=== PATIENT | female | born 1985 | race Two or more races ===

== ENCOUNTER 2018-02-06 21:36 | Emergency (ER) | payer MEDICARE ==
[~2018-02-06] VITALS: Ht 149.9 cm; Wt 61.2 kg
[2018-02-06 22:00] VITALS: BP 89/51
[2018-02-06 22:09] LABS: APPEARANCE,URINE CLEAR; BILIRUBIN, URINE NEGATIVE (NEGATIVE); COLOR,URINE YELLOW; GLUCOSE, URINE (UA) 2+ (NEGATIVE); KETONES,URINE NEGATIVE (NEGATIVE); LEUKOCYTE ESTERASE ,URINE 1+ (NEGATIVE); NITRITE,URINE NEGATIVE (NEGATIVE); PH,URINE 9 (4.5-8.0); PROTEIN,URINE 3+ (NEGATIVE); UROBILINOGEN,URINE NORMAL MG/DL (0.0-1.0)
[2018-02-06] MEDS ORDERED: AMOXICILLIN500 MG ORAL (22:25)
[2018-02-06 22:53] VITALS: BP 99/67
--- NOTE | 2018-02-06 23:46 | Emergency Room Report ---
History of Present Illness General Chief Complaint: Earache Source: Patient Present Illness HPI 32-year-old female presents ED for evaluation. Complaining of left ear pain 1 day. Throbbing, 9 out of 10, nonradiating. Denies fevers or chills. History of end-stage renal disease on dialysis. Had dialysis yesterday. Denies sore throat or cough. Denies sick contacts or recent travel. No other aggravating relieving factors. Denies any other associated symptoms Allergies: Coded Allergies: VANCOMYCIN (Verified Allergy, Unknown, 02/06/18) Patient History Past Medical History: renal disease, dialysis Past Surgical History: none Pertinent Family History: none Social History: Denies: smoking, alcohol use, drug use Last Menstrual Period: 01/07/2018 Now: No Immunizations: UTD Reviewed Nursing Documentation: PMH: Agreed; PSxH: Agreed Nursing Documentation-PMH Past Medical History: No History, Except For Hx Dialysis: Yes - MWF Review of Systems All Other Systems: negative except mentioned in HPI Physical Exam Vital Signs Date Time Temp Pulse Resp B/P (MAP) Pulse Ox O2 Delivery O2 Flow Rate FiO2 02/06/18 21:39 98.9 105 16 99 Room Air 99.0 02/06/18 22:00 89/51 Sp02 EP Interpretation: reviewed, normal General Appearance: no apparent distress, alert, GCS 15, non-toxic Head: normocephalic Eyes: bilateral eye normal inspection, bilateral eye PERRL ENT: normal pharynx, uvula midline, other - fluid behind L TM. erythematus Neck: normal inspection Respiratory: chest non-tender, lungs clear, normal breath sounds, speaking full sentences Cardiovascular #1: normal inspection Gastrointestinal: normal inspection Rectal: deferred Genitourinary: no CVA tenderness Musculoskeletal: normal inspection Neurologic: alert, oriented x3, responsive, motor strength/tone normal, sensory intact, speech normal Psychiatric: normal inspection Skin: normal inspection Lymphatic: normal inspection Medical Decision Making Diagnostic Impression: Primary Impression: ESRD on dialysis Additional Impressions: Otitis media Qualified Codes: H66.90 - Otitis media, unspecified, unspecified ear Earache, left ER Course Hospital Course 32-year-old F presents to ED with pain L ear. no fever. Differential diagnoses include: TM perforation, otitis externa, otitis media Clinical course Patient placed on stretcher. After initial history, physical exam reveals a female in no acute distress. L TM fluid noted. poor light reflex. Remainder of physical exam unremarkable. clinical findings consistent with otitis media UA negative Patient has end-stage renal disease. Dosing for amoxicillin is once daily. She does not have a PMD here we will provide referrals. Diagnosis - otitis media, ERSD on dialysis Stable and discharged to home with Rx amoxicillin. Followup with PMD. Return to ED if symptoms recur or worsen Labs Test 02/06/18 21:46 Urine Color Yellow Urine Appearance Clear Urine pH 9 (4.5-8.0) Urine Specific [place] 1.010 (1.005-1.035) Urine Protein 3+ (NEGATIVE) Urine Glucose (UA) 2+ (NEGATIVE) Urine Ketones Negative (NEGATIVE) Urine Blood 2+ (NEGATIVE) Urine Nitrite Negative (NEGATIVE) Urine Bilirubin Negative (NEGATIVE) Urine Urobilinogen Normal MG/DL (0.0-1.0) Urine Leukocyte Esterase 1+ (NEGATIVE) Urine RBC 5-10 /HPF (0 - 2) Urine WBC 2-4 /HPF (0 - 2) Urine Squamous Epithelial Cells Few /LPF (NONE/OCC) Urine Bacteria Few /HPF (NONE) Urine HCG, Qualitative Negative (NEGATIVE) Last Vital Signs Date Time Temp Pulse Resp B/P (MAP) Pulse Ox O2 Delivery O2 Flow Rate FiO2 02/06/18 22:53 98.2 78 16 99/67 96 Room Air 98.2 Status: improved Disposition: HOME, SELF-CARE Condition: Stable Scripts Amoxicillin* (AMOXIL*) 500 Mg Capsule 500 MG ORAL DAILY for 10 Days, #10 CAP Prov: Harley Mariee MD 02/06/18 Referrals: NOT CHOSEN IPA/,REFERRING (PCP) [facility] Patient Instructions: Otitis Media, Adult, [id number], End-Stage Kidney Disease Harley Mariee MD Feb 06, 2018 23:46
== END 2018-02-06 22:45 | disposition home or self-care (01) ==
LOC: EMR 21:56
DX: H66.90 Otitis media, unspecified, unspecified ear (principal); N18.6 End stage renal disease; Z99.2 Dependence on renal dialysis; Z88.1 Allergy status to other antibiotic agents
CPT/HCPCS: 81003; 81025; 99283

== ENCOUNTER 2018-02-10 01:59 | Emergency (ER) | payer MEDICARE ==
[~2018-02-10] VITALS: Ht 160 cm; Wt 56.2 kg
[~2018-02-10 01:59] MED LIST: AMOXICILLIN500 MG ORAL
[2018-02-10 02:22] VITALS: BP 110/70
[2018-02-10] MEDS ORDERED: HYDROCODON-ACE1 EA15 ORAL (02:35)
[2018-02-10] MEDS ORDERED: CIPRODEX OTIC7.5 M1 LEFT EAR (02:35)
[2018-02-10] MEDS ORDERED: CLINDAMYCIN HC300 MG ORAL (02:35)
--- NOTE | 2018-02-10 02:36 | Emergency Room Report ---
History of Present Illness General Chief Complaint: Earache Source: Patient Present Illness HPI Is a 32-year-old female with history of renal failure hemodialysis. She presents with tumor left ear pain. She was here 5 days ago for the same thing. Was placed on amoxicillin. Not improving. Increasing pain. No nausea no vomiting. No fever chills. Worse with movement and palpation. Denies any other complaint. Allergies: Coded Allergies: VANCOMYCIN (Verified Allergy, Unknown, 02/06/18) Patient History Past Medical History: see triage record, old chart reviewed Past Surgical History: other Pertinent Family History: none Social History: Denies: smoking Now: No Immunizations: other Reviewed Nursing Documentation: PMH: Agreed; PSxH: Agreed Nursing Documentation-PMH Hx Dialysis: Yes - MWF Review of Systems Eye: Denies: eye pain, blurred vision ENT: Reports: ear pain; Denies: nose congestion, throat swelling Respiratory: Denies: cough, shortness of breath Cardiovascular: Denies: chest pain, palpitations Gastrointestinal: Denies: abdominal pain, diarrhea, nausea, vomiting Musculoskeletal: Denies: back pain, joint pain Skin: Denies: rash Neurological: Denies: headache, numbness Endocrine: Denies: increased thirst, increased urine Hematologic/Lymphatic: Denies: easy bruising All Other Systems: negative except mentioned in HPI Physical Exam Vital Signs Date Time Temp Pulse Resp B/P (MAP) Pulse Ox O2 Delivery O2 Flow Rate FiO2 02/10/18 02:06 98.3 84 16 111/73 97 Room Air 98.2 vitals normal Sp02 EP Interpretation: reviewed, normal General Appearance: well appearing, no apparent distress, alert Head: normocephalic, atraumatic Eyes: bilateral eye PERRL, bilateral eye EOMI ENT: hearing grossly normal, normal pharynx, other - Left ear: There is some edema to the canal. Worse with movement. TM is cloudy. No perforation. Neck: full range of motion, supple, no meningismus Respiratory: chest non-tender, lungs clear, normal breath sounds Cardiovascular #1: regular rate, rhythm, no murmur Gastrointestinal: normal bowel sounds, non tender, no mass, no organomegaly, no bruit, non-distended Musculoskeletal: back normal, gait/station normal, normal range of motion Psychiatric: mood/affect normal Skin: warm/dry Medical Decision Making Diagnostic Impression: Primary Impression: Otitis media Qualified Codes: H66.002 - Acute suppurative otitis media without spontaneous rupture of ear drum, left ear Additional Impression: Otitis externa Qualified Codes: H60.502 - Unspecified acute noninfective otitis externa, left ear ER Course Patient with both otitis externa and otitis media. We'll put on antibiotic drops and switch antibiotic class. No evidence of perforation. No evidence of mastoiditis. We'll discharge home. Last Vital Signs Date Time Temp Pulse Resp B/P (MAP) Pulse Ox O2 Delivery O2 Flow Rate FiO2 02/10/18 02:22 98.2 84 16 110/70 97 Room Air 98.2 Status: improved Disposition: HOME, SELF-CARE Condition: Stable Scripts Ciprofloxacin Hcl/Dexameth (CIPRODEX OTIC SUSPENSION) 7.5 Ml Drops.susp 4 DROP LEFT EAR TWICE A DAY, #10 ML Prov: Damon Jacobsen MD 02/10/18 Hydrocodone/Acetaminophen 5-325* (HYDROCODONE/ACETAMINOPHEN 5-325*) 1 Each Tablet 1 TAB ORAL Q6H PRN for For Pain, #15 TAB 0 Refills Prov: Damon Jacobsen MD 02/10/18 Clindamycin Hcl (CLINDAMYCIN HCL) 300 Mg Capsule 300 MG ORAL THREE TIMES A DAY, #21 CAP Prov: Damon Jacobsen MD 02/10/18 Patient Instructions: Otitis Media, Adult, [id number] Additional Instructions: Follow-up with your doctor in 7 days. Return if worse. If not better, you may need a referral to see ENT doctor. Damon Jacobsen MD Feb 10, 2018 02:36
[2018-02-10 02:51] VITALS: BP 110/73
== END 2018-02-10 02:55 | disposition home or self-care (01) ==
LOC: EMR 02:39
DX: H66.92 Otitis media, unspecified, left ear (principal); H60.92 Unspecified otitis externa, left ear; Z88.1 Allergy status to other antibiotic agents
CPT/HCPCS: 99282

== ENCOUNTER 2018-03-12 17:00 | Emergency (ER) | payer MEDICARE, OTHER ==
[~2018-03-12] VITALS: Ht 149.9 cm; Wt 60.3 kg
[~2018-03-12 17:00] MED LIST changes: +CIPRODEX OTIC7.5 M1 LEFT EAR; +CLINDAMYCIN HC300 MG ORAL; +HYDROCODON-ACE1 EA15 ORAL
[2018-03-12] MEDS ORDERED: RENVELA0.8 GM ORAL (17:15)
--- NOTE | 2018-03-12 17:34 | Emergency Room Report ---
History of Present Illness General Chief Complaint: Upper Extremity Injury Source: Patient Present Illness HPI 32-year-old female patient presents ER complaining of left wrist pain for the past few hours. Patient reports that she was swinging a bat piata when she began x-rays of her spine. Reports mild decreased range of motion secondary to pain. Denies numbness or tingling. Reports right-hand dominant. Reports history of end-stage renal disease, states that her dialysis is done on MWF and her fistula is on her right upper extremity. Denies fever, chest pain, shortness of breath. Allergies: Coded Allergies: VANCOMYCIN (Verified Allergy, Unknown, 02/06/18) Patient History Past Medical History: see triage record Now: No Reviewed Nursing Documentation: PMH: Agreed; PSxH: Agreed Nursing Documentation-PMH Past Medical History: No History, Except For Hx Dialysis: Yes - MWF Review of Systems All Other Systems: negative except mentioned in HPI Physical Exam Vital Signs Date Time Temp Pulse Resp B/P (MAP) Pulse Ox O2 Delivery O2 Flow Rate FiO2 03/12/18 17:09 98.4 94 18 102/73 97 Room Air Sp02 EP Interpretation: reviewed, normal General Appearance: well appearing, no apparent distress, alert, GCS 15, non- toxic Head: normocephalic, atraumatic Eyes: bilateral eye normal inspection, bilateral eye PERRL ENT: hearing grossly normal, normal pharynx, no angioedema, normal voice, uvula midline, moist mucus membranes Neck: full range of motion Respiratory: lungs clear, normal breath sounds, no rhonchi, no respiratory distress, no accessory muscle use, no wheezing, speaking full sentences Cardiovascular #1: regular rate, rhythm, no edema Cardiovascular #2: 2+ radial (R), 2+ radial (L) Musculoskeletal: back normal, digits/nails normal, gait/station normal, normal range of motion - supination and pronation, non-tender, decreased range of motion - secondary to pain with flexion and extension, other - NVI, no snuffbox tenderness, tender - lateral distal left wrist on lateral aspect Neurologic: alert, oriented x3, responsive, motor strength/tone normal, sensory intact Psychiatric: mood/affect normal Skin: no rash Medical Decision Making PA Attestation Dr. Mariee is my supervising Physician whom patient management has been discussed with. Diagnostic Impression: Primary Impression: Wrist sprain ER Course Pt. presents to the ED c/o left wrist pain. Ddx considered but are not limited to fracture, sprain, strain, contusion, dislocation. No erythema, no warmth to touch, no fever, nontoxic appearing, low suspicion for septic joint. Soft compartments, no pulselessness, no pallor, no paresthesias, low suspicion for compartment syndrome at this time. Vital signs: are WNL, pt. is afebrile Ordered X-ray and pain medication. ER COURSE Provided with pain medication. An X-ray of the left wrist negative for acute fracture per the preliminary reading. Likely sprain causing pain symptoms. Splint was applied to the left wrist and was checked afterwards by me showing good alignment and support with distal neurovascular functioning intact. Patient instructed on RICE method: rest, ice, compression, elevation. Patient instructed on rest, ice and heat. Patient instructed to be WBAT Contact information for orthopedic urgent care provided, follow-up with urgent care if unable to followup with primary care provider and get referral to recreation specialist. Followup with primary care provider. Discuss referral to ortho/pain management/ PT as needed. Discuss further imaging with MRI/CT as needed. DISCHARGE: -Rx provided for Tylenol for pain symptoms. At this time pt. is stable for d/c to home. Patient is resting comfortably, in no acute distress, nontoxic appearing, talking without difficulty. Will provide printed patient care instructions, and any necessary prescriptions. Patient instructed to follow with primary care provider in 3 - 5 days and to request further follow-up as needed. Care plan and follow up instructions have been discussed with the patient prior to discharge. Take medications as directed. Patient questions asked and answered. Patient reports understanding and agreement to treatment plan. ER precautions given, patient instructed to return to ER immediately for any new or worsening of symptoms. - Please note that this Emergency Department Report was dictated using [employer] software, occasionally this can lead to erroneous entry secondary to interpretation by the dictation equipment. Other X-Ray Diagnostic Results Other X-Ray Diagnostic Results : X-Ray ordered: left wrist # of Views/Limited Vs Complete: 3 View Indication: Pain EP Interpretation: Yes PA Xray: Interpretation reviewed, by supervising MD, and agrees with findings. Interpretation: no dislocation, no fractures Impression: No acute disease HOWIE Scribe Text Niranjan Bobbi PA-C Last Vital Signs Date Time Temp Pulse Resp B/P (MAP) Pulse Ox O2 Delivery O2 Flow Rate FiO2 03/12/18 17:09 98.4 94 18 102/73 97 Room Air Status: improved Disposition: HOME, SELF-CARE Condition: Stable Scripts Acetaminophen* (TYLENOL EXTRA STRENGTH*) 500 Mg Tablet 500 MG ORAL Q8H PRN for Prn Headache/Temp > 101, #30 TAB 0 Refills Prov: Ed Martines 03/12/18 Patient Instructions: Wrist Sprain Additional Instructions: Patient instructed to follow up with primary care provider and discuss further referral to orthopedics/physical therapy/pain management as needed. If unable to followup with PCP, followup with orthopedic urgent care in 5-7 days , call to schedule appointment. Patient instructed on RICE method: rest, ice, compression, elevation. Patient instructed to WBAT. Take medications as directed. Patient questions asked and answered. ER precautions given, patient instructed to return to ER immediately for any new or worsening of symptoms. [facility] [address] [facility] [address] [facility], [address] [email or web address] Ed Martines Mar 12, 2018 17:34
[2018-03-12 17:49] VITALS: BP 114/79
[2018-03-12] MEDS ORDERED: TYLENOL EXTRA500 MG ORAL (17:52)
[2018-03-12 18:07] VITALS: BP 114/79
--- NOTE | 2018-03-13 10:40 | Diagnostic Imaging Report ---
Clinical Indication:Wrist pain Technique: 3 views of the left wrist Comparison: None Findings: No acute fractures. No dislocations. The joint spaces are preserved Impression: Negative
== END 2018-03-12 18:07 | disposition home or self-care (01) ==
LOC: EMR 17:11
DX: S63.502A Unspecified sprain of left wrist, initial encounter (principal); X50.9XXA Other and unspecified overexertion or strenuous movements or postures, initial encounter; Y92.9 Unspecified place or not applicable; N18.6 End stage renal disease; Z99.2 Dependence on renal dialysis
CPT/HCPCS: 29125; 99283

== ENCOUNTER 2018-07-24 21:29 | Emergency (ER) | payer MEDICARE, OTHER ==
[~2018-07-24] VITALS: Ht 160 cm; Wt 68.0 kg
[~2018-07-24 21:29] MED LIST changes: +RENVELA0.8 GM ORAL; +TYLENOL EXTRA500 MG ORAL
--- NOTE | 2018-07-24 22:26 | NUR ---
ED Nurse Note: Pt walked in ED, c/o right ankle pain 10/02, due to cauted in stamped today. Pt is A/O X4. VSS , waitng for orders.
--- NOTE | 2018-07-24 22:50 | NUR ---
ED Nurse Note: X-ray done at bed side, Pain meds given as ordered.
[2018-07-24] MEDS ORDERED: IBUPROFEN600 MG ORAL (23:21)
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
[2018-07-24 23:34] VITALS: BP 105/63
--- NOTE | 2018-07-24 23:34 | NUR ---
ER DISCHARGE NOTE: Patient is cleared to be discharged per Dr. Jacobsen. X-ray done to the right foot and no fracture was found at this time. Crutches provided. Pt is A/O x4 on room air with stable vital signs. Pt was given D/C and prescription instructions, Pt was able to verbalize understanding, pt ID band removed. pt is able to ambulate with Crutches and took all belongings.
--- NOTE | 2018-07-25 10:55 | Diagnostic Imaging Report ---
Indication: Trauma, pain, status post fall Technique: 3 views right foot Comparison: none Findings: There is mild hallux valgus. No acute fractures. No dislocations. The joint spaces are preserved. Impression: Negative
--- NOTE | 2018-07-25 10:57 | Diagnostic Imaging Report ---
Indication: Trauma, pain, status post fall Technique: 3 views of the right knee Comparison: None Findings: No suprapatellar effusion. No acute fractures. No dislocations. Joint spaces are preserved Impression: Negative
== END 2018-07-24 23:34 | disposition home or self-care (01) ==
LOC: EMR 22:21
DX: S83.91XA Sprain of unspecified site of right knee, initial encounter (principal); S93.601A Unspecified sprain of right foot, initial encounter; W01.0XXA Fall on same level from slipping, tripping and stumbling without subsequent striking against object, initial encounter; Y93.02 Activity, running; Y92.89 Other specified places as the place of occurrence of the external cause; Z88.1 Allergy status to other antibiotic agents
CPT/HCPCS: 99283

== ENCOUNTER 2018-11-01 20:54 | Emergency (ER) | payer MEDICARE, OTHER ==
[~2018-11-01] VITALS: Ht 149.9 cm; Wt 60.3 kg
[~2018-11-01 20:54] MED LIST changes: +IBUPROFEN600 MG ORAL
--- NOTE | 2018-11-01 21:33 | NUR ---
ED Nurse Note: Pt ambulated to ED from home c/o 8/10 R flank pain x 3 hrs. Pt had dialysis today M/W/F, shunt on upper R arm. Pt is A&Ox4.
[2018-11-01 21:36] VITALS: BP 93/54
[2018-11-01 21:59] LABS: APPEARANCE,URINE CLOUDY; BILIRUBIN, URINE NEGATIVE (NEGATIVE); COLOR,URINE YELLOW; GLUCOSE, URINE (UA) 2+ (NEGATIVE); KETONES,URINE NEGATIVE (NEGATIVE); LEUKOCYTE ESTERASE ,URINE 1+ (NEGATIVE); NITRITE,URINE NEGATIVE (NEGATIVE); PH,URINE 9 (4.5-8.0); PROTEIN,URINE 3+ (NEGATIVE); UROBILINOGEN,URINE NORMAL MG/DL (0.0-1.0)
[2018-11-01 22:11] LABS: BASOPHILS % (AUTO) 1.4 % (0.0-2.0); EOSINOPHILS % (AUTO) 3.9 % (0.0-3.0); HEMATOCRIT 38.7 % (37.0-47.0); HEMOGLOBIN 12.8 G/DL (12.0-16.0); LYMPHOCYTES % (AUTO) 20.7 % (20.0-45.0); MEAN CORPUSCULAR VOLUME 97 FL (80-99); MONOCYTES % (AUTO) 8.1 % (1.0-10.0); NEUTROPHILS % (AUTO) 65.9 % (45.0-75.0); PLATELET COUNT 130 K/UL (150-450); RED BLOOD COUNT 3.98 M/UL (4.20-5.40); RED CELL DISTRIBUTION WIDTH 12.6 % (11.6-14.8); WHITE BLOOD COUNT 8.5 K/UL (4.8-10.8)
[2018-11-01 22:21] LABS: ANION GAP 8 mmol/L (5-15); BLOOD UREA NITROGEN 23 mg/dL (7-18); CARBON DIOXIDE 34 MMOL/L (21-32); CHLORIDE 98 MMOL/L (98-107); CREATININE 6.3 MG/DL (0.55-1.30); SODIUM 140 MMOL/L (136-145)
[2018-11-01] MEDS ORDERED: Cephalexin 500mg cap ORAL ONE (23:00)
[2018-11-01] MEDS ORDERED: CEPHALEXIN500 MG ORAL (23:48)
[2018-11-01 23:50] VITALS: BP 128/80
--- NOTE | 2018-11-01 23:50 | NUR ---
ER DISCHARGE NOTE: Patient is cleared to be discharged per ERMD, pt is aox4, on room air, with stable vital signs. pt was given dc and prescription instructions, pt was able to verbalize understanding, pt id band removed. pt is able to ambulate with steady gait. pt took all belongings.
--- NOTE | 2018-11-02 02:07 | Emergency Room Report ---
History of Present Illness General Chief Complaint: Pain Source: Patient Present Illness HPI Patient presents with complaints of right flank pain ongoing for the past 2 days denies any chest pain or shortness of breath denies any fevers denies any vomiting or diarrhea Patient receives dialysis Tuesday and just had dialysis earlier this morning patient does still make urine Denies any anterior abdominal pain denies any recent travel or trauma Allergies: Coded Allergies: VANCOMYCIN (Verified Allergy, Unknown, 02/06/18) Patient History Past Medical History: see triage record Last Menstrual Period: 09/2018 Reviewed Nursing Documentation: PMH: Agreed; PSxH: Agreed Nursing Documentation-PMH Hx Dialysis: Yes - MWF Review of Systems All Other Systems: negative except mentioned in HPI Physical Exam Vital Signs Date Time Temp Pulse Resp B/P (MAP) Pulse Ox O2 Delivery O2 Flow Rate FiO2 11/01/18 21:27 99.0 84 16 93/54 (67) 98 Room Air Sp02 EP Interpretation: reviewed, normal General Appearance: well appearing, no apparent distress Head: normocephalic, atraumatic Eyes: bilateral eye PERRL, bilateral eye EOMI ENT: hearing grossly normal, normal pharynx, TMs + canals normal, uvula midline Neck: full range of motion, supple, no meningismus, no bony tend Respiratory: lungs clear, normal breath sounds, no rhonchi, no respiratory distress, no retraction, no accessory muscle use Cardiovascular #1: normal peripheral pulses, regular rate, rhythm, no edema, no gallop, no JVD, no murmur Gastrointestinal: normal bowel sounds, non tender, soft, no mass, no organomegaly, non-distended, no guarding, no hernia, no pulsatile mass, no rebound Genitourinary: no CVA tenderness - However points objectively to the right lower and flank region Musculoskeletal: normal inspection Neurologic: oriented x3, responsive, 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, motor strength/ tone normal, sensory intact Psychiatric: mood/affect normal Skin: no rash Lymphatic: normal inspection, no adenopathy Medical Decision Making Diagnostic Impression: Primary Impression: uti Additional Impression: flank pain ER Course With the history exam and presentation, multiple differentials considered, including but not limited to appendicitis, gastritis, cholecystitis, diverticulitis Patient had CT imaging also obtained without contrast given the kidney failure status No obvious acute pathology is seen patient's urine however does show some signs of UTI given the location of discomfort early pyelonephritis is also considered Patient does not appear septic or toxic and will have initial Conservative outpatient trial Labs Test 11/01/18 21:45 11/01/18 22:00 Urine Color Yellow Urine Appearance Cloudy Urine pH 9 (4.5-8.0) Urine Specific [place] 1.015 (1.005-1.035) Urine Protein 3+ (NEGATIVE) Urine Glucose (UA) 2+ (NEGATIVE) Urine Ketones Negative (NEGATIVE) Urine Blood 1+ (NEGATIVE) Urine Nitrite Negative (NEGATIVE) Urine Bilirubin Negative (NEGATIVE) Urine Urobilinogen Normal MG/DL (0.0-1.0) Urine Leukocyte Esterase 1+ (NEGATIVE) Urine RBC 5-10 /HPF (0 - 2) Urine WBC 2-4 /HPF (0 - 2) Urine Squamous Epithelial Cells Few /LPF (NONE/OCC) Urine Amorphous Sediment Few /LPF (NONE) Urine Bacteria Moderate /HPF (NONE) Urine HCG, Qualitative Negative (NEGATIVE) White Blood Count 8.5 K/UL (4.8-10.8) Red Blood Count 3.98 M/UL (4.20-5.40) Hemoglobin 12.8 G/DL (12.0-16.0) Hematocrit 38.7 % (37.0-47.0) Mean Corpuscular Volume 97 FL (80-99) Mean Corpuscular Hemoglobin 32.2 PG (27.0-31.0) Mean Corpuscular Hemoglobin Concent 33.1 G/DL (32.0-36.0) Red Cell Distribution Width 12.6 % (11.6-14.8) Platelet Count 130 K/UL (150-450) Mean Platelet Volume 10.5 FL (6.5-10.1) Neutrophils (%) (Auto) 65.9 % (45.0-75.0) Lymphocytes (%) (Auto) 20.7 % (20.0-45.0) Monocytes (%) (Auto) 8.1 % (1.0-10.0) Eosinophils (%) (Auto) 3.9 % (0.0-3.0) Basophils (%) (Auto) 1.4 % (0.0-2.0) Sodium Level 140 MMOL/L (136-145) Potassium Level 4.0 MMOL/L (3.5-5.1) Chloride Level 98 MMOL/L (98-107) Carbon Dioxide Level 34 MMOL/L (21-32) Anion Gap 8 mmol/L (5-15) Blood Urea Nitrogen 23 mg/dL (7-18) Creatinine 6.3 MG/DL (0.55-1.30) Estimat Glomerular Filtration Rate 7.6 mL/min (>60) Glucose Level 92 MG/DL (74-106) Calcium Level 10.0 MG/DL (8.5-10.1) CT/MRI/US Diagnostic Results CT/MRI/US Diagnostic Results : Impression CT abdomen pelvis: Refer to report for full specifics no acute disease Last Vital Signs Date Time Temp Pulse Resp B/P (MAP) Pulse Ox O2 Delivery O2 Flow Rate FiO2 11/01/18 23:50 98.2 78 12 128/80 98 Room Air Status: improved Disposition: HOME, SELF-CARE Condition: Improved Scripts Cephalexin* (KEFLEX*) 500 Mg Capsule 500 MG ORAL EVERY 6 HOURS for 7 Days, CAP Prov: Lisandra Fallon DO 11/01/18 Referrals: NOT CHOSEN IPA/MD,REFERRING (PCP) Primary physician Patient Instructions: Flank Pain, [id number], Urinary Tract Infection, Easy- to-Read Additional Instructions: Patient is provided with the discharge instructions notified to follow up with primary doctor in the next 2-3 days otherwise return to the er with any worsening symptoms. Please note that this report is being documented using [employer] technology. This can lead to erroneous entry secondary to incorrect interpretation by the dictating instrument. Lisandra Fallon DO Nov 02, 2018 02:07
--- NOTE | 2018-11-02 10:41 | Diagnostic Imaging Report ---
Indication: Abdominal pain Technique: Continuous helical transaxial imaging of the abdomen and pelvis was obtained from the lung bases to the pubic symphysis. No intravenous contrast was administered. Coronal 2-D reformats were also obtained. Automatic Exposure Control was utilized. Total Dose length Product (DLP): 756.[address] Dose Index Volume (CTDIvol): 14.36 mGy Comparison: none Findings: Mild linear densities at the lung bases likely atelectasis. The kidneys are atrophic. Solid organs are not evaluated well on noncontrast imaging. There is a focus of the low attenuation near the falciform ligament which is likely fat. There is no free fluid. Bowel gas pattern is nonobstructive. Appendix is normal. Uterus noted. Bladder is nondistended. IMPRESSION: No acute findings identified Other findings as above. [facility] has communicated the preliminary results to the Emergency Department. Their findings are largely concordant with this report. The CT scanner at [facility] is accredited by the [employer] and the scans are performed using dose optimization techniques as appropriate to a performed exam including Automatic Exposure control.
== END 2018-11-01 23:50 | disposition home or self-care (01) ==
LOC: EMR 21:30
DX: N39.0 Urinary tract infection, site not specified (principal); R10.9 Unspecified abdominal pain; N18.6 End stage renal disease; Z99.2 Dependence on renal dialysis
CPT/HCPCS: 36415; 74176; 80048; 81003; 81025; 85025; 87086; 99284

== ENCOUNTER 2019-03-26 19:22 | Emergency (ER) | payer MEDICARE, OTHER ==
[~2019-03-26] VITALS: Ht 149.9 cm; Wt 60.8 kg
[~2019-03-26 19:22] MED LIST changes: +CEPHALEXIN500 MG ORAL
--- NOTE | 2019-03-26 19:46 | Emergency Room Report ---
History of Present Illness General Chief Complaint: Upper Respiratory Illness Source: Medical Record Present Illness HPI 33-year-old female with history of dialysis due to preeclampsia who gets her dialysis every Tuesday and received her dialysis today and has a functioning fistula with a good thrill on the right arm here complaining of 3 days of cough and congestion as well as sore throat. Rating the sore throat 10 out of 10 without radiation. Denies fever and chills at this time complains of chest congestion and pain after coughing. Has taken Tamiflu with minimal relief. Denies wheezing, shortness of breath, palpitation, abdominal pain, nausea vomiting, and other associated symptoms. Denies tobacco smoke, reports that has history of asthma and has her inhaler at home. Allergies: Coded Allergies: VANCOMYCIN (Verified Allergy, Unknown, 02/06/18) Patient History Past Medical History: see triage record Past Surgical History: unable to obtain Pertinent Family History: none Now: No Immunizations: UTD Reviewed Nursing Documentation: PMH: Agreed; PSxH: Agreed Nursing Documentation-PMH Past Medical History: No History, Except For Hx Dialysis: Yes - MWF Review of Systems All Other Systems: negative except mentioned in HPI Physical Exam Vital Signs Date Time Temp Pulse Resp B/P (MAP) Pulse Ox O2 Delivery O2 Flow Rate FiO2 03/26/19 19:27 98.8 98 20 104/64 (77) 98 Room Air Sp02 EP Interpretation: reviewed, normal General Appearance: no apparent distress, alert, GCS 15, non-toxic Head: normocephalic, atraumatic Eyes: bilateral eye normal inspection, bilateral eye PERRL ENT: EOM grossly intact, no angioedema, normal voice, TMs + canals normal, nasal congestion, tonsillar exudate Neck: full range of motion, supple, thyroid normal, no meningismus, no bony tend, supple/symm/no masses Respiratory: chest non-tender, lungs clear, normal breath sounds, no rhonchi, no respiratory distress, no retraction, no wheezing, speaking full sentences Cardiovascular #1: regular rate, rhythm, no edema, no murmur, normal capillary refill Gastrointestinal: normal bowel sounds, non tender, soft, non-distended, no guarding, no rebound Genitourinary: no CVA tenderness Musculoskeletal: back normal, normal range of motion, no calf tenderness, gait/ station normal, non-tender Neurologic: alert, motor strength/tone normal, oriented x3, sensory intact, responsive, speech normal Psychiatric: judgement/insight normal, memory normal, mood/affect normal, no suicidal/homicidal ideation Skin: no rash Lymphatic: no adenopathy Medical Decision Making PA Attestation All my diagnosis and treatment plans were reviewed ad discussed with my supervising physician Dr. Fallon Diagnostic Impression: Primary Impression: Strep pharyngitis ER Course 33-year-old female with history of dialysis due to preeclampsia who gets her dialysis every Tuesday and received her dialysis today and has a functioning fistula with a good thrill on the right arm here complaining of 3 days of cough and congestion as well as sore throat. Rating the sore throat 10 out of 10 without radiation. Denies fever and chills at this time complains of chest congestion and pain after coughing. Has taken Tamiflu with minimal relief. Denies wheezing, shortness of breath, palpitation, abdominal pain, nausea vomiting, and other associated symptoms. Denies tobacco smoke, reports that has history of asthma and has her inhaler at home. Ddx considered but are not limited to: strep pharyngitis, URI, tonsillitis, peritonsillar abscess, influneza Vital signs: are WNL, pt. is afebrile H&PE are most consistent with: Strep pharyngitis ORDERS: Amoxicillin, guaifenesin ED INTERVENTIONS: None required at this time. DISCHARGE: At this time pt. is stable for d/c to home. Will provide printed patient care instructions, and any necessary prescriptions. Care plan and follow up instructions have been discussed with the patient prior to discharge. Patient to follow-up with her primary care provider, associate with mid level game designer prior to intake of new medication, if worsening symptoms return to emergency room No indication for chest x-ray as patient has normal lung sounds, and vitals are within normal limits Last Vital Signs Date Time Temp Pulse Resp B/P (MAP) Pulse Ox O2 Delivery O2 Flow Rate FiO2 03/26/19 19:27 98.8 98 20 104/64 (77) 98 Room Air Disposition: HOME, SELF-CARE Condition: Stable Scripts Guaifenesin* (GUAIFENESIN) 100 Mg/5 Ml Liquid 5 ML ORAL Q8H, #120 ML 0 Refills Prov: Kesha Gomez 03/26/19 Amoxicillin* (AMOXIL*) 500 Mg Capsule 500 MG ORAL EVERY 12 HOURS for 10 Days, #20 CAP Prov: Kesha Gomez 03/26/19 Patient Instructions: Pharyngitis, [id number] Additional Instructions: Take medication as directed, follow-up with your primary care provider, if worsening symptoms return to the emergency room. See your dialysis doctor and consult with your dialysis doctor before the start of medication Kesha Gomez Mar 26, 2019 19:46
[2019-03-26] MEDS ORDERED: AMOXICILLIN500 MG ORAL (19:48)
[2019-03-26] MEDS ORDERED: GUAIFENESI100 MG/5 M ORAL (19:48)
[2019-03-26 19:50] VITALS: BP 104/64
--- NOTE | 2019-03-26 19:50 | NUR ---
ED Nurse Note: pt is cleared to be d/c per ER provider, pt discharge and aftercare instruction w/ prescription provided, pt education done via discussion and handout, pt advised to follow up with pcp or return to ED if changes in condition, pt verbalized understanding and agrees with plan, vss, ambulatory w/ steady gait, left w/ all belongings. pt accompanied by family member.
== END 2019-03-26 19:50 | disposition home or self-care (01) ==
LOC: EMR 19:45
DX: J02.0 Streptococcal pharyngitis (principal); Z99.2 Dependence on renal dialysis
CPT/HCPCS: 99282

== ENCOUNTER 2020-03-06 08:23 | Emergency (ER) | payer MEDICARE, OTHER ==
[~2020-03-06] VITALS: Ht 149.9 cm; Wt 59.0 kg
[~2020-03-06 08:23] MED LIST changes: +GUAIFENESI100 MG/5 M ORAL; +NITROFURANTOIN100 M2 ORAL; +PHENAZOPYRIDIN100 MG ORAL
--- NOTE | 2020-03-06 09:00 | NUR ---
ED Nurse Note:pt. came from home with c/o left knee pain no injury reported
--- NOTE | 2020-03-06 10:18 | Emergency Room Report ---
History of Present Illness General Chief Complaint: Lower Extremity Injury Source: Patient Present Illness HPI Patient states that she was stepping out of her car yesterday when she felt a pop in her left knee. She states this was sudden. She states she has had pain and swelling in her left knee since that time. She denies recent illness. She states that she did undergo a kidney transplant but that has been going well and has no other issues or complaints. Allergies: Coded Allergies: VANCOMYCIN (Verified Allergy, Unknown, 02/06/18) COVID-19 Screening Contact w/high risk pt: No Experienced COVID-19 symptoms?: No COVID-19 Testing performed INDUSTRIAL ENGINEERING: Yes COVID-19 Screening: Negative COVID-19 COVID-19 Testing Source: PSYCH TECH Patient History Past Medical History: see triage record, other - Kidney transplant Social History: Denies: smoking, alcohol use, drug use Last Menstrual Period: 02/24/20 Now: No Reviewed Nursing Documentation: PMH: Agreed; PSxH: Agreed Nursing Documentation-PMH Hx Cardiac Problems: No - ESRD WITH HD, FISTULA ON RIGHT ARM Hx Hypertension: No Hx Pacemaker: No Hx Asthma: No Hx COPD: No Hx Diabetes: No Hx Cancer: No Hx Gastrointestinal Problems: No - kidney transplant Hx Dialysis: Yes - ESRD WITH HD, FISTULA ON RIGHT ARM Hx Cerebrovascular Accident: No Hx Seizures: No Review of Systems All Other Systems: negative except mentioned in HPI Physical Exam Vital Signs Date Time Temp Pulse Resp B/P (MAP) Pulse Ox O2 Delivery O2 Flow Rate FiO2 03/06/20 08:40 97.5 82 15 123/74 (90) 100 Room Air Sp02 EP Interpretation: reviewed, normal General Appearance: no apparent distress, alert, GCS 15, non-toxic Head: normocephalic, atraumatic Eyes: bilateral eye normal inspection ENT: hearing grossly normal, no angioedema, normal voice Neck: normal inspection, full range of motion Respiratory: no respiratory distress, no retraction, no accessory muscle use, speaking full sentences Rectal: deferred Musculoskeletal: back normal, normal range of motion, tender, swelling - +joint effusion of L. knee, +pain w/ any knee movement Neurologic: alert, motor strength/tone normal, oriented x3, sensory intact, responsive, speech normal Psychiatric: judgement/insight normal, memory normal, mood/affect normal, no suicidal/homicidal ideation Skin: no rash, normal color Medical Decision Making Diagnostic Impression: Primary Impression: Knee sprain ER Course This patient has a joint effusion on exam. I suspect she has a ligamental injury possibly an MCL/meniscus. The knee is stable on exam to have a low suspicion for an ACL injury. However, she was placed in a knee immobilizer and given crutches. There is no evidence of infection as there is no warmth or erythema and further the patient had a sudden onset of symptoms consistent with musculoskeletal injury. The patient does have plans to see an warehouse distribution specialist already as she had been having joint pain previously. I suspect the patient has an underlying rheumatic disease. Regardless, the patient was treated with a knee immobilizer and crutches and instructed to follow-up closely with orthopedics. Unfortunately, I cannot give the patient any NSAIDs as the patient is a kidney transplant patient. Further, the patient is driving and could not take narcotics for having to drive. There was no emergency medical condition identified. The patient is given close return precautions and follow- up instructions. Other X-Ray Diagnostic Results Other X-Ray Diagnostic Results : X-Ray ordered: L. Knee xray # of Views/Limited Vs Complete: Complete Indication: Pain EP Interpretation: Yes Interpretation: no fractures, other - +joint effusion Impression: Other - +joint effusion Electronically Signed by: Palak Srinivasan DO Last Vital Signs Date Time Temp Pulse Resp B/P (MAP) Pulse Ox O2 Delivery O2 Flow Rate FiO2 03/06/20 08:40 97.5 82 15 123/74 (90) 100 Room Air Status: improved Disposition: HOME, SELF-CARE Condition: Improved Referrals: NOT CHOSEN IPA/MD,REFERRING (PCP) Patient Instructions: Knee Sprain Palak Srinivasan DO Mar 06, 2020 10:18
[2020-03-06] MEDS ORDERED: ACETAMINOPHEN-1 EAC1 ORAL (10:19)
--- NOTE | 2020-03-06 10:23 | NUR ---
ED Nurse Note: Pt cleared by health care Provider for discharge. DC instructions/prescription was given and explained to pt and verbalized understanding of teachings. All medical deviecs such as ID band removed. Pt is AAO x4, ambulatory and left with all personal belongings.
[2020-03-06 10:24] VITALS: BP 123/74
--- NOTE | 2020-03-06 14:27 | Diagnostic Imaging Report ---
Indication: Left knee pain Technique: 3 views of the left knee Comparison: None Findings: There is a small suprapatellar effusion. No acute fractures. No dislocations. The joint spaces are preserved. Impression: Negative
== END 2020-03-06 10:34 | disposition home or self-care (01) ==
LOC: EMR 09:15
DX: S83.92XA Sprain of unspecified site of left knee, initial encounter (principal); N18.6 End stage renal disease; Z99.2 Dependence on renal dialysis; X50.1XXA Overexertion from prolonged static or awkward postures, initial encounter; Y93.89 Activity, other specified; Y92.810 Car as the place of occurrence of the external cause
CPT/HCPCS: 99283